=== PATIENT | female | born 1980 | race Caucasian/White ===

== ENCOUNTER → 2016-11-23 | Day surgery (SDC) | payer OTHER | END | disposition home or self-care (01) | LOC: FAS 09:24 | DX: K43.2 Incisional hernia without obstruction or gangrene (principal); K21.9 Gastro-esophageal reflux disease without esophagitis; K57.90 Diverticulosis of intestine, part unspecified, without perforation or abscess without bleeding; F17.210 Nicotine dependence, cigarettes, uncomplicated; R74.0 Nonspecific elevation of levels of transaminase and lactic acid dehydrogenase [LDH]; J30.2 Other seasonal allergic rhinitis; K91.5 Postcholecystectomy syndrome; Q79.59 Other congenital malformations of abdominal wall; E55.9 Vitamin D deficiency, unspecified; K50.90 Crohn's disease, unspecified, without complications; G47.30 Sleep apnea, unspecified; Z87.19 Personal history of other diseases of the digestive system; Z91.048 Other nonmedicinal substance allergy status; Z82.49 Family history of ischemic heart disease and other diseases of the circulatory system; Z82.5 Family history of asthma and other chronic lower respiratory diseases; Z90.49 Acquired absence of other specified parts of digestive tract; Z79.899 Other long term (current) drug therapy; Z98.890 Other specified postprocedural states | CPT/HCPCS: C1781; J0690; J1170; J2405; J2704; J2710; J3010 ==